=== PATIENT | male | born 1995 | race Caucasian/White ===

== ENCOUNTER 2017-08-25 22:44 | Emergency (ER) | payer BC ==
[2017-08-25 22:50] VITALS: TEMP 99.7; O2SAT 97
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
[2017-08-25 23:31] VITALS: BP 130/84; PULSE 68; RESP 14
== END 2017-08-25 23:30 | disposition home or self-care (01) ==
DX: S42.022A Displaced fracture of shaft of left clavicle, initial encounter for closed fracture (principal); V18.2XXA Unspecified pedal cyclist injured in noncollision transport accident in nontraffic accident, initial encounter
CPT/HCPCS: A4565